=== PATIENT | male | born 1930 | race Caucasian/White ===

== ENCOUNTER 2016-12-12 09:49 | Inpatient (IN) | payer OTHER ==
--- NOTE | 2016-12-12 10:00 | EDPHY ---
H & P Time Seen by Provider: 12/12/16 10:00 HPI/ROS: CHIEF COMPLAINT: Altered HISTORY OF PRESENT ILLNESS: Patient activated is lifeline and was seen by EMS who knows him well who felt that he was more altered than normal. History is difficult to obtain because the patient is very hard of hearing despite his hearing aids. He describes injuring his back 3 days ago but denies any other medical complaints. REVIEW OF SYSTEMS: Eye: no change in vision ENT: no sore throat Cardiac: no chest pain or syncope Pulmonary: no cough or SOB Abdomen: no vomiting, diarrhea, abdominal pain Musculoskeletal: HPI Skin: no rash Neuro: no headache, no weakness or numbness in extremities Constitutional: no fever : no urinary symptoms A comprehensive 10 point review of systems is otherwise negative aside from elements mentioned in the history of present illness. PAST MEDICAL HISTORY: Emergency department record dated 04/05/2016 personally reviewed by myself includes alcohol, Alzheimer's, seizure disorder Social history: Lives independently General Appearance: Alert and conversant, cooperative. Eyes: No scleral icterus. ENT, Mouth: Normal mucous membranes. No tongue laceration or abrasion. Occipital hematoma. Respiratory: Normal respiratory effort, breath sounds equal, lungs are clear to auscultation. Cardiovascular: Regular rate and rhythm. Gastrointestinal: Abdomen is soft and non tender. Neurological: Alert and responds appropriately to commands. Speech is fluent but he is very hard of hearing. Face symmetric, normal movement and sensation in all extremities. Skin: Warm and dry, no rashes. Musculoskeletal: No peripheral edema and no joint swelling. No midline cervical thoracic or lumbar spine tenderness. Psychiatric: Not agitated. Emergency Department course/MDM: Patient apparently has more altered than normal. He is very hard of hearing. According to EMS his living residence is disorganized and with moldy food everywhere and several uncashed checks. Patient had safety evaluation by case management who felt like he was not safe to be discharged back to his home. Smoking Status: Never smoked Constitutional: Initial Vital Signs Temperature (C) 36.8 C 12/12/16 10:00 Heart Rate 69 12/12/16 10:00 Respiratory Rate 18 12/12/16 10:00 Blood Pressure 181/89 H 12/12/16 10:00 O2 Sat (%) 96 12/12/16 10:00 O2 Delivery Mode Room Air Allergies/Adverse Reactions: I can't remember the name Allergy (Uncoded 05/31/14 15:29) methylate Allergy (Uncoded 05/25/15 09:41) Home Medications: Medication Instructions Recorded Multivitamins [Multivitamin (*)] 1 each PO DAILY 12/12/16 lamoTRIgine [LamICTAL 100 MG (*)] 150 mg PO BID 12/12/16 Medical Decision Making - Diagnostics EKG Interpretation: 12-lead EKG interpreted by me; official reading is in trace master. My interpretation is sinus rhythm with right bundle branch block rate 68 Imaging: Negative head CT per [facility] at 11:00 a.m.. Lumbar spine x-ray showed no acute fracture dislocation or other injury. Personally interpreted by myself. Old compression fracture. Differential Diagnosis: Differential diagnosis considered for altered mental status including but not limited to hypoglycemia, infectious process, electrolyte abnormality, head injury and intoxicants. Consult/Admit Bed Type: [place] [id number] - Data Points Laboratory Results: Laboratory Results 12/12/16 10:11 12/12/16 10:11 12/12/16 12/12/16 10:11 10:11 WBC 9.26 10^3/uL 10^3/uL (3.80-9.50) RBC 4.61 10^6/uL 10^6/uL (4.40-6.38) Hgb 15.0 g/dL g/dL (13.7-17.5) Hct 43.8 % % (40.0-51.0) MCV 95.0 fL fL (81.5-99.8) MCH 32.5 pg pg (27.9-34.1) MCHC 34.2 g/dL g/dL (32.4-36.7) RDW 12.3 % % (11.5-15.2) Plt Count 212 10^3/uL 10^3/uL (150-400) MPV 9.7 fL fL (8.7-11.7) Neut % (Auto) 80.3 % H % (39.3-74.2) Lymph % (Auto) 9.6 % L % (15.0-45.0) Terrell % (Auto) 8.4 % % (4.5-13.0) Eos % (Auto) 1.2 % % (0.6-7.6) Baso % (Auto) 0.1 % L % (0.3-1.7) Nucleat RBC Rel Count 0.0 % % (0.0-0.2) Absolute Neuts (auto) 7.43 10^3/uL H 10^3/uL (1.70-6.50) Absolute Lymphs (auto) 0.89 10^3/uL L 10^3/uL (1.00-3.00) Absolute Monos (auto) 0.78 10^3/uL 10^3/uL (0.30-0.80) Absolute Eos (auto) 0.11 10^3/uL 10^3/uL (0.03-0.40) Absolute Basos (auto) 0.01 10^3/uL L 10^3/uL (0.02-0.10) Absolute Nucleated RBC 0.00 10^3/uL 10^3/uL (0-0.01) Immature Gran % 0.4 % % (0.0-1.1) Immature Gran # 0.04 10^3/uL 10^3/uL (0.00-0.10) Sodium 141 mEq/L mEq/L (134-144) Potassium 4.3 mEq/L mEq/L (3.5-5.2) Chloride 104 mEq/L mEq/L (97-110) Carbon Dioxide 29 mEq/l mEq/l (22-31) Anion Gap 8 mEq/L mEq/L (8-16) BUN 28 mg/dL H mg/dL (7-23) Creatinine 0.9 mg/dL mg/dL (0.7-1.3) Estimated GFR > 60 Glucose 101 mg/dL H mg/dL (70-100) Calcium 9.3 mg/dL mg/dL (8.5-10.4) Departure - Departure Disposition: [facility] Clinical Impression: Dementia Qualifiers: Dementia type: Alzheimer's disease Alzheimer's disease onset: unspecified onset Dementia behavioral disturbance: with behavioral disturbance Qualified Code(s): G30.8 - Other Alzheimer's disease Condition: Good
[2016-12-12 10:23] LABS: % IMMATURE GRANULYOCYTES 0.4 % (0.0-1.1); ABSOLUTE IMMATURE GRANULOCYTES 0.04 10^3/uL (0.00-0.10); ADD DIFF? NO; ADD MORPH? NO; ADD SCAN? NO; ATYPICAL LYMPHOCYTE FLAG 0 (0-99); FRAGMENT RBC FLAG 0 (0-99); HEMATOCRIT 43.8 % (40.0-51.0); LEFT SHIFT FLG 0 (0-99); LIPEMIA HEMOLYSIS FLAG 90 (0-99); MEAN CELL HEMOGLOBIN 32.5 pg (27.9-34.1); MEAN CELL HEMOGLOBIN CONCENTR. 34.2 g/dL (32.4-36.7); MEAN PLATELET VOLUME 9.7 fL (8.7-11.7); PLATELET CLUMPS FLAG 0 (0-99); PLATELET COUNT 212 10^3/uL (150-400); RED BLOOD CELL COUNT 4.61 10^6/uL (4.40-6.38); RED CELL DISTRIBUTION WIDTH 12.3 % (11.5-15.2)
[2016-12-12 10:46] LABS: ANION GAP 8 mEq/L (8-16); CALCIUM 9.3 mg/dL (8.5-10.4); CARBON DIOXIDE 29 mEq/l (22-31); CHLORIDE 104 mEq/L (97-110); CREATININE 0.9 mg/dL (0.7-1.3); GLOMERULAR FILTRATION RATE > 60; GLUCOSE 101 mg/dL (70-100); POTASSIUM 4.3 mEq/L (3.5-5.2); SODIUM 141 mEq/L (134-144)
--- NOTE | 2016-12-12 10:54 | CPEKG ---
Heart Rate: 68 RR Interval: 882 P-R Interval: 176 QRSD Interval: 140 QT Interval: 444 QTC Interval: 473 P [place]: 64 QRS [place]: -24 T Wave [place]: 22 EKG Severity - ABNORMAL ECG - EKG Impression: SINUS RHYTHM EKG Impression: RIGHT BUNDLE BRANCH BLOCK Electronically Signed By: Edis Branham 12-Dec-2016 14:32:27
[2016-12-12] MEDS ORDERED: ONDANSETRON 4 MG/2 ML VIAL IVP PRN (15:36)
[2016-12-12] MEDS ORDERED: ACETAMINOPHEN 325 MG TAB PO PRN (15:36)
--- NOTE | 2016-12-12 16:11 | GHP ---
[f rep st] HISTORY AND PHYSICAL DATE OF ADMISSION: 12/12/2016 CHIEF COMPLAINT: Altered mental status. HISTORY OF PRESENT ILLNESS: This is an 86-year-old male with history of dementia, lives independently who was brought to the emergency department after he activated his Life Alert at home. The patient is a very poor historian. He tells me he is in [place]. 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 The history was obtained via review of records and ER report. Apparently, the patient is well known to the local EMS since he has been activating his Life Alert on a near daily basis. The EMS workers thought he was slightly more confused than usual. He is profoundly hard of hearing, making the interview even more difficult. I did attempt to communicate with him by writing things down on paper. He was able to tell me that he is not in any pain. He does not necessarily want to come in the hospital; however, per ER report, his house was found to be very disheveled with rotting food and filth. PAST MEDICAL HISTORY: 1. Alzheimer's dementia. 2. Seizure disorder. 3. Alcohol abuse. PAST SURGICAL HISTORY: Unknown. HOME MEDICATIONS: Reviewed. ALLERGIES: Unobtainable. SOCIAL HISTORY: The patient lives independently where apparently he has a history of alcohol use; however, I was unable to confirm this. FAMILY HISTORY: Unobtainable. REVIEW OF SYSTEMS: A comprehensive 10-point review of systems was attempted; however, this was unable to be done due to the patient's altered mental status. PHYSICAL EXAM: VITAL SIGNS: Blood pressure 164/95, pulse of 83, respiratory rate 18, O2 saturation 97% on room air. Temperature afebrile. GENERAL: Dishevelled, not in any acute distress. Appears to be mildly confused. HEAD: Normocephalic, atraumatic. Eyes: PERRLA. MOUTH: Moist mucous membranes. HEART: S1, S2. No murmurs, rubs, clicks, gallops. No JVD. No lower extremity edema. PULMONARY: Lungs are clear. No wheezes, rales, or rhonchi. ABDOMEN: Soft, nontender, nondistended. No guarding or rebound tenderness. Normoactive bowel sounds. EXTREMITIES: No clubbing or cyanosis. NEURO: The patient is moving all extremities. Face is symmetric. The patient does not appear to have any focal deficits other than his confusion. He is oriented to person only. He thinks he is in [place]. He is unable to tell me what year it is. He thinks he is in a [facility] and not a hospital. SKIN: Clear. No rashes. DIAGNOSTICS: Head CT: Stable, moderate atrophy with no hemorrhage, mass effect or definite acute peripheral infarct. Lumbar spine x-ray was reviewed showing moderate anterior wedge compression fracture, more prominent along the right side of L1, appears to be stable in appearance and partial sacralization of the L5 segment. EKG which I visualized and personally interpreted shows sinus rhythm, rate 68 beats per minute, with right bundle branch block. There is no ST-segment elevation or depression. WBC is 9.2, hemoglobin 15, hematocrit 43.8, platelets II-XII. Sodium 141, potassium 4.3, chloride 104, CO2 29, BUN 28, creatinine 0.9, glucose 101. ASSESSMENT AND PLAN: This is an 86-year-old male with history of Alzheimer's dementia who lives independently who was brought to the emergency department by EMS after he has repeatedly activated his Life Alert. 1. Adult failure to thrive with evidence for being gravely disabled given that his house is full of rotten food. 2. Suspected mild dehydration with evidence for prerenal azotemia with a BUN of 28 and a creatinine of 0.9. 3. History of Alzheimer's dementia. 4. History of seizure disorder. 5. Moderate anterior wedge compression fracture of L1 that is likely chronic, as well as partial sacralization of the L5 segment. PLAN: 1. The patient will be admitted to the hospital under inpatient status since he will likely require hospitalization through 2 midnights given the severity of his disability. Case Management will be consulted and adult protective Services should likely get involved with this case as well. 2. Will encourage oral hydration as opposed to IV hydration since the patient will likely pull out any IVs. 3. Continue home seizure medications and that includes Lamictal. 4. The patient did not appear to be in any back pain. We will defer any further workup or treatment of this finding unless the patient does develop some signs and symptoms. 5. I suspect the patient will be quite difficult to control in the hospital given his confusion. He will have a sitter who can hopefully help with refocusing the patient and comforting him, but we may need to resort to pharmacologic measures such as antipsychotic medications if he does become acutely agitated. If antipsychotics are started, this should be discussed with his daughter who apparently lives in [facility]. /[id number]/MODL and [id number]/MODL, 12/12/16 [id number] [facility]
[2016-12-12] MEDS: lamoTRIgine 100 MG TAB PO SCH (22:23)
[2016-12-12] MEDS ORDERED: PNEUMOC 13-VAL CONJ-DIP CRM/PF 0.5 ML SYR IM ONE (22:38)
[2016-12-12] MEDS ORDERED: FLU VACC TS 2016-17(65YR+)/PF 0.5 ML SYR (FLUZONE HIGH DOSE) IM ONE (22:38)
[2016-12-13] MEDS: lamoTRIgine 100 MG TAB PO SCH ×2 (09:53→20:32)
[2016-12-13] MEDS: MULTIVITAMINS 1 EACH TAB PO SCH (09:54)
[2016-12-13] MEDS: ENOXAPARIN 40 MG/0.4 ML SYR SC SCH (09:55)
--- NOTE | 2016-12-13 15:08 | HOSPPROG ---
Hospitalist Progress Note Assessment/Plan: 86-year-old male present to the emergency room via EMS after utilizing his Life Alert button. This is my 1st encounter with the patient, chart reviewed. Patient discussed with case management as well as RN. # Alzheimer's dementia Severe Likely at baseline # adult failure to thrive Patient at baseline Requires further assistance in living # dehydration Improved with encouraged oral hydration # disabled Unable to care for herself # disposition Daughter is his POA She arriving on Saturday Continue supportive care Will likely be unable to return home to previous living situation Subjective: Up ambulating with nurse. Very confused. No specific complaints. Objective: Vital Signs Temp Pulse Resp BP Pulse Ox 36.4 C 63 14 132/81 H 94 12/13/16 07:43 12/13/16 07:43 12/13/16 07:43 12/13/16 07:43 12/13/16 07:43 12/12/16 12/13/16 12/14/16 05:59 05:59 05:59 Intake Total 500 200 Balance 500 200 - Physical Exam Constitutional: no apparent distress, appears nourished, not in pain Eyes: PERRL, anicteric sclera, EOMI Ears, Nose, Mouth, Throat: moist mucous membranes, ears appear normal, hard of hearing Cardiovascular: No JVD, No tachycardia, No edema Respiratory: no respiratory distress, no rales or rhonchi, reduced air movement Gastrointestinal: No tenderness, No ascites, No guarding Skin: warm, normal color, No erythema Musculoskeletal: normal joint ROM, no joint effusions, generalized weakness Neurologic: No AAOx3 Psychiatric: poor insight, poor judgement, poor memory, No thought process linear ICD10 Worksheet Patient Problems: Problems Problem Status Onset Dementia Acute
[2016-12-13] MEDS ORDERED: OLANZapine 2.5 MG TAB PO PRN (18:59)
[2016-12-14] MEDS: ENOXAPARIN 40 MG/0.4 ML SYR SC SCH (08:44)
[2016-12-14] MEDS: lamoTRIgine 100 MG TAB PO SCH (08:44)
[2016-12-14] MEDS: MULTIVITAMINS 1 EACH TAB PO SCH (08:44)
--- NOTE | 2016-12-14 09:00 | HOSPPROG ---
Hospitalist Progress Note Assessment/Plan: 86-year-old male present to the emergency room via EMS after utilizing his Life Alert button. This is my 1st encounter with the patient, chart reviewed. # Alzheimer's dementia Severe Likely at baseline # adult failure to thrive Patient at baseline Requires further assistance in living # dehydration Improved with encouraged oral hydration # disabled Unable to care for herself # disposition Daughter is his POA to go to [facility] today Subjective: Reed is severely hard of hearing and keeps asking how much salt he can consume/ has no complaints. Objective: Vital Signs Temp Pulse Resp BP Pulse Ox 36.7 C 80 18 167/107 H 95 12/14/16 07:14 12/14/16 07:14 12/14/16 07:14 12/14/16 07:14 12/14/16 07:14 12/13/16 12/14/16 12/15/16 05:59 05:59 05:59 Intake Total 500 600 Balance 500 600 - Physical Exam Constitutional: no apparent distress, appears nourished Eyes: PERRL Ears, Nose, Mouth, Throat: hard of hearing (even with hearing aid) Cardiovascular: regular rate and rhythym Respiratory: no rales or rhonchi Gastrointestinal: normoactive bowel sounds Skin: warm Musculoskeletal: full muscle strength Neurologic: other (confused/only oriented to himself) Psychiatric: poor insight, poor judgement, poor memory, No thought process linear ICD10 Worksheet Patient Problems: Problems Problem Status Onset Dementia Acute
--- NOTE | 2016-12-14 15:02 | PDIAF ---
- Diagnosis Diagnosis: alzeheimer's dementia/severe/ extremely [place] Code Status: Do Not Resuscitate - Medication Management Discharge Medications: Medications to Continue on Transfer Multivitamins [Multivitamin (*)] 1 each PO DAILY 12/12/16 [Last Taken Unknown] lamoTRIgine [LamICTAL 100 MG (*)] 150 mg PO BID 12/12/16 [Last Taken Unknown] Acetaminophen [Tylenol 325mg (*)] 650 mg PO Q6 PRN #0 tab 12/14/16 [Last Taken Unknown] OLANZapine [ZyPREXA 2.5 mg (*)] 2.5 mg PO HS PRN #0 tab 12/14/16 [Last Taken Unknown] Discharge Medications: Refer to the Discharge Home Medication list for PRN reason. - Orders Services needed: Physical Therapy, Occupational Therapy Diet Recommendation: no restrictions on diet Diet Texture: Regular Texture Diet Additional: Zyprexa is a new medication for the patient. Also, when speaking with the patient, if an ear microphone is available, is very helpful. - Follow Up Care Current Providers and Referrals: NONE *PRIMARY CARE P,. [Primary Care Provider] - As per Instructions
--- NOTE | 2016-12-14 15:52 | GDS ---
Patient was not discharged as planned. He will be going to [facility] on . [f rep st] DISCHARGE SUMMARY DISCHARGE DIAGNOSIS: 1. Severe Alzheimer's dementia. 2. Failure to thrive. 3. Dehydration. HISTORY: Briefly, Mr. Her is an 86-year-old male with history of dementia, who lives independently, who was brought to the ER after he activated his Life Alert at home. On admission, he was noted to be a very poor historian. His history was obtained via review of records and ER report. He is well-known to the EMS service. He has been activating his Life Alert on a nearly daily basis. He is noted to have Alzheimer dementia as well as a seizure disorder and history of alcohol abuse. He was admitted. Case management has been involved with his care. The plan is for him to go to [facility] today. He has been started on Zyprexa with good results. He has been much calmer. I spoke with his daughter, Olivia Her and explained to her the "black box warning" with Zyprexa and that it does increase the risk of in the elderly. She is aware of this and says she is very comfortable with this medication being continued because of his advanced dementia. HOSPITAL COURSE: 1. Alzheimer disease. I suspect he is at his baseline. 2. Adult failure to thrive. He has been living independently. He will go to [facility] to be monitored closely. 3. Dehydration, improved with eating and drinking. PENDING LABS AND TESTS: None. CONDITION ON DISCHARGE: Stable. Blood pressure is 111/72, heart rate is 80, respiratory rate is 18, O2 saturation on room air 95%, temperature is 36.7 Celsius. MEDICATIONS AT DISCHARGE: Please see the EMR. DISCHARGE INSTRUCTIONS: 1. Care at [facility]. 2. If he develops chest pain, shortness of breath, fever or chills, to return to the ER. 3. I spoke with his daughter, Olivia, who is his medical power of activity director and reviewed his Advance Directive. He is a DNR. She understands the risks and benefits of the Zyprexa and the black box warning involved with this. TIME: Greater than 30 minutes discharging and coordinating care. /[id number]/MODL MTDD
[2016-12-14] MEDS ORDERED: OLANZapine 2.5 MG TAB PO ONE (17:36)
[2016-12-15] MEDS: lamoTRIgine 100 MG TAB PO SCH ×3 (01:23→21:54)
[2016-12-15] MEDS ORDERED: OLANZapine 2.5 MG TAB PO ONE (08:42)
--- NOTE | 2016-12-15 08:49 | HOSPPROG ---
Hospitalist Progress Note Assessment/Plan: 86-year-old male present to the emergency room via EMS after utilizing his Life Alert button. # Alzheimer's dementia Severe/ patient does well with Zyprexa will give him half the dose this morning because he is agitated and see if this helps calms him Likely at baseline # adult failure to thrive Patient at baseline Requires further assistance in living # dehydration Improved with encouraged oral hydration # disabled Unable to care for herself # disposition hopefully to [facility] soon. Patient's daughter to arrive today. I spoke with her last night in reviewed in detail the black box warning of using Zyprexa in the elderly along with dementia. She is okay with use of this medication. Subjective: Reed keeps asking where his partner is that he travels with. Objective: Vital Signs Temp Pulse Resp BP Pulse Ox 36.6 C 100 17 141/82 H 95 12/15/16 00:00 12/15/16 00:00 12/15/16 00:00 12/15/16 00:00 12/15/16 00:00 12/14/16 12/15/16 12/16/16 05:59 05:59 05:59 Intake Total 600 750 Balance 600 750 - Physical Exam Constitutional: appears nourished, not in pain Eyes: PERRL Ears, Nose, Mouth, Throat: hard of hearing ( Severely hard of hearing which makes it difficult to communicate even with a voice box) Respiratory: no respiratory distress Skin: warm, normal color Musculoskeletal: full muscle strength Neurologic: other Psychiatric: encephalopathic, agitated, poor insight, poor judgement, poor memory ICD10 Worksheet Patient Problems: Problems Problem Status Onset Dementia Acute
[2016-12-15] MEDS: MULTIVITAMINS 1 EACH TAB PO SCH (09:02)
[2016-12-15] MEDS: ENOXAPARIN 40 MG/0.4 ML SYR SC SCH (09:11)
[2016-12-15] MEDS ORDERED: OLANZapine 2.5 MG TAB PO PRN (14:02)
[2016-12-16] MEDS: lamoTRIgine 100 MG TAB PO SCH ×2 (09:41→19:31)
[2016-12-16] MEDS: MULTIVITAMINS 1 EACH TAB PO SCH (09:41)
[2016-12-16] MEDS: ENOXAPARIN 40 MG/0.4 ML SYR SC SCH (09:41)
--- NOTE | 2016-12-16 14:34 | HOSPPROG ---
Hospitalist Progress Note Assessment/Plan: 86-year-old male present to the emergency room via EMS after utilizing his Life Alert button. # Alzheimer's dementia Severe/ patient does well with Zyprexa bit calmer today recognizes his ex- # adult failure to thrive Patient at baseline Requires further assistance in living # dehydration Improved with encouraged oral hydration # disabled Unable to care for himself # disposition Daughter is here visiting looking at possible placement for her dad. Subjective: Reed has no complaints/ going to get in the shower. Objective: Vital Signs Temp Pulse Resp BP Pulse Ox 36.8 C 98 16 132/75 H 95 12/16/16 09:30 12/16/16 09:30 12/16/16 09:30 12/15/16 20:20 12/16/16 09:30 12/15/16 12/16/16 12/17/16 05:59 05:59 05:59 Intake Total 750 1400 Balance 750 1400 - Physical Exam Constitutional: no apparent distress, appears nourished, not in pain Eyes: PERRL Ears, Nose, Mouth, Throat: hard of hearing (severe/ has hearing aid in place) Respiratory: no respiratory distress Skin: warm Musculoskeletal: no muscle tenderness Neurologic: other (alert, only oriented to himself and his ex ) Psychiatric: not anxious, poor insight, poor judgement, poor memory ICD10 Worksheet Patient Problems: Problems Problem Status Onset Dementia Acute
[2016-12-17] MEDS: MULTIVITAMINS 1 EACH TAB PO SCH (08:12)
[2016-12-17] MEDS: lamoTRIgine 100 MG TAB PO SCH ×2 (08:12→19:57)
[2016-12-17] MEDS: ENOXAPARIN 40 MG/0.4 ML SYR SC SCH (08:15)
--- NOTE | 2016-12-17 08:32 | HOSPPROG ---
Hospitalist Progress Note Assessment/Plan: 86-year-old male present to the emergency room via EMS after utilizing his Life Alert button. # Alzheimer's dementia Severe/ patient does well with Zyprexa/but has not needed it/ staff aware to only use if absolutely necessary bit calmer today recognizes his ex- # adult failure to thrive Patient at baseline Requires further assistance in living # dehydration Improved with encouraged oral hydration # disabled Unable to care for himself # disposition Daughter is here visiting/ did the MOST form with her today and is on the chart for tx tomorrow. He will be going to [facility]/ paperwork done for this. Subjective: Reed is very [place] but is happy and in good spirits this morning. Objective: Vital Signs Temp Pulse Resp BP Pulse Ox 36.9 C 78 16 145/98 H 94 12/17/16 07:24 12/17/16 07:24 12/17/16 07:24 12/17/16 07:24 12/17/16 07:24 12/16/16 12/17/16 12/18/16 05:59 05:59 05:59 Intake Total 1400 900 Balance 1400 900 - Physical Exam Constitutional: no apparent distress, appears nourished, not in pain Eyes: PERRL Ears, Nose, Mouth, Throat: hard of hearing Cardiovascular: regular rate and rhythym Respiratory: no respiratory distress Skin: warm, normal color Musculoskeletal: full muscle strength Neurologic: other (alert, oriented to himself and daughter) Psychiatric: encephalopathic, poor insight, poor judgement, poor memory ICD10 Worksheet Patient Problems: Problems Problem Status Onset Dementia Acute
[2016-12-17 20:59] VITALS: RESP 16
--- NOTE | 2016-12-18 09:28 | PDIAF ---
- Diagnosis Diagnosis: alzeheimer's dementia/severe/ extremely [place] Code Status: Do Not Resuscitate - Medication Management Discharge Medications: Medications to Continue on Transfer RX: Multivitamins [Multivitamin (*)] 1 each PO DAILY 12/12/16 [Last Taken Unknown] RX: lamoTRIgine [LamICTAL 100 MG (*)] 150 mg PO BID 12/12/16 [Last Taken Unknown ] RX: Acetaminophen [Tylenol 325mg (*)] 650 mg PO Q6 PRN #0 tab 12/14/16 [Last Taken Unknown] RX: OLANZapine [ZyPREXA 2.5 mg (*)] 2.5 mg PO HS PRN #0 tab 12/14/16 [Last Taken Unknown] Discharge Medications: Refer to the Discharge Home Medication list for PRN reason. - Orders Services needed: Physical Therapy, Occupational Therapy Diet Recommendation: no restrictions on diet Diet Texture: Regular Texture Diet Additional: Zyprexa is a new medication for the patient. Also, when speaking with the patient, if an ear microphone is available, is very helpful. - Follow Up Care Current Providers and Referrals: NONE *PRIMARY CARE P,. [Primary Care Provider] - As per Instructions
--- NOTE | 2016-12-18 09:31 | PDIAF ---
- Diagnosis Diagnosis: alzeheimer's dementia/severe/ extremely [place] Code Status: Do Not Resuscitate - Medication Management Discharge Medications: Medications to Continue on Transfer Multivitamins [Multivitamin (*)] 1 each PO DAILY 12/12/16 [Last Taken Unknown] Acetaminophen [Tylenol 325mg (*)] 650 mg PO Q6 PRN #0 tab 12/14/16 [Last Taken Unknown] lamoTRIgine [LamICTAL 100 MG (*)] 150 mg PO BID #30 tab 12/18/16 [Last Taken Unknown] Discharge Medications: Refer to the Discharge Home Medication list for PRN reason. - Orders Services needed: Physical Therapy, Occupational Therapy, Speech Language Pathologist Diet Recommendation: no restrictions on diet Diet Texture: Regular Texture Diet Additional: when speaking with the patient, if an ear microphone is available, is very helpful. - Follow Up Care Current Providers and Referrals: NONE *PRIMARY CARE P,. [Primary Care Provider] - As per Instructions
[2016-12-18] MEDS: lamoTRIgine 100 MG TAB PO SCH (10:04)
[2016-12-18] MEDS: MULTIVITAMINS 1 EACH TAB PO SCH (10:04)
[2016-12-18] MEDS: ENOXAPARIN 40 MG/0.4 ML SYR SC SCH (10:08)
[2016-12-18 13:35] VITALS: BP 130/73; PULSE 67; TEMP 98.2; O2SAT 94
--- NOTE | 2016-12-18 16:38 | GDS ---
[f rep st] DISCHARGE SUMMARY DISCHARGE DIAGNOSES: 1. Alzheimer dementia, end-stage. 2. Adult failure to thrive. 3. Dehydration. 4. Disabled. DISCHARGE PHYSICAL EXAMINATION: GENERAL: The patient is alert. VITAL SIGNS: Afebrile at 36.8, pu lse 67, respiratory rate 16, blood pressure is 130/73, saturating 94% on room air. I saw and evalua bimal the patient on the day of discharge. HOSPITAL COURSE: The patient is an 86-year-old male who presented to the emergency room via EMS aft er pushing his Life Alert button. He was evaluated and diagnosed with: 1. Alzheimer dementia. This is end-stage in this patient. He has responded well to Zyprexa and is calm and cooperative. He will go to a locked unit at the time of disposition. 2. Adult failure to thrive. The patient is unable to live independently. 3. Dehydration. This has resolved, and he is encouraged to consume oral hydration. 4. Disabled. The patient is unable to care for himself. DISPOSITION: The patient will be discharged to [facility], where he will continue to rehab in potential new residence there. No pending studies. DISCHARGE MEDICATIONS: Please refer to EMR form. I have discussed the patient's disposition at length with the embedded case manager. I have spent greater th an 35 minutes in the care, coordination, and management of this patient's disposition. /[id number]/MODL
== END 2016-12-18 14:34 | DRG 641 ==
LOC: EDUNIT# → F3E 16:05
PROVIDERS: ADMIT Family Medicine; ATTEND Family Medicine
DX: R62.7 Adult failure to thrive (principal); G30.9 Alzheimer's disease, unspecified; F02.80 Dementia in other diseases classified elsewhere, unspecified severity, without behavioral disturbance, psychotic disturbance, mood disturbance, and anxiety; R56.9 Unspecified convulsions; F10.10 Alcohol abuse, uncomplicated; E86.0 Dehydration; Z66 Do not resuscitate
CPT/HCPCS: 97116-GP; 97161-GP; 97166-GO; 97530-GO; 97535-GO; G8978-GP-CJ; G8979-GP-CI; G8987-GO-CK; G8988-GO-CI; J1650